=== PATIENT | male | born 1935 | race Caucasian/White ===

== ENCOUNTER → 2017-05-19 | Outpatient (CLI) | payer MEDICARE, BC ==
--- NOTE | 2017-05-19 17:47 | RADIOLOGY REPORT (SQ) ---
EXAM DESCRIPTION: SCAPULA BILATERAL COMPLETED DATE/TIME: 05/19/2017 5:34 pm REASON FOR STUDY: PAIN IN LEFT SHOULDER COMPARISON: None. NUMBER OF VIEWS: Two views, AP and lateral LIMITATIONS: None. FINDINGS: No acute fracture dislocation identified. There is significant degenerative changes noted in both shoulder joints, right greater than left. This all significant degenerative changes in both acromioclavicular joints. Visualized lung horne are clear. OTHER: No other significant finding. IMPRESSION: No acute fracture dislocation identified. Degenerative changes noted in both glenohumer al and acromioclavicular joints, right greater than left. TECHNICAL DOCUMENTATION: JOB ID: [id number]
== END ==
LOC: OD 17:06
PROVIDERS: ATTEND Internal Medicine
DX: M25.512 Pain in left shoulder (principal)

== ENCOUNTER → 2017-05-21 | Outpatient (CLI) | payer MEDICARE, BC ==
--- NOTE | 2017-05-21 14:39 | RADIOLOGY REPORT (SQ) ---
EXAM DESCRIPTION: MRI HEAD WITHOUT COMPLETED DATE/TIME: 05/21/2017 12:32 pm REASON FOR STUDY: DEMENTIA F02.80 DEMENTIA IN OTH DISEASES CLASSD ELSWHR W/O BEHAVRL DI COMPARISON: MRI brain dated 07/15/2010 TECHNIQUE: Multiplanar imaging includes non-contrasted T1, T2, FLAIR, and diffusion with ADC map seq uences. Images stored on PACS. LIMITATIONS: None. FINDINGS: ANATOMY: No anomalies. Normal vascular flow voids. Pituitary fossa normal. CSF SPACES: Atrophy induced prominence of ventricles and CSF spaces. This has increased since 2009. CEREBRUM: High signal intensity lesions scattered throughout the white matter on FLAIR imaging with d istribution suggesting micro-vascular ischemic changes. No evidence of hemorrhage, mass, or extraaxi al fluid collection. POSTERIOR FOSSA: No signal alteration. No hemorrhage. No edema, masses or mass effect. Internal quoc tory canals, cerebello-pontine angles, mastoids normal. DIFFUSION IMAGING: Negative for acute or sub-acute infarction. ORBITS: No masses. Globes normal. PARANASAL SINUSES: No fluid levels. Mucosa normal. OTHER: No other significant finding. IMPRESSION: ATROPHY AND CHRONIC MICRO-VASCULAR ISCHEMIC CHANGES. OTHERWISE NORMAL MRI OF THE BRAIN W ITHOUT INTRAVENOUS GADOLINIUM CONTRAST. TECHNICAL DOCUMENTATION: JOB ID: [id number] [employer]- All Rights Reserved
== END ==
LOC: RAD 11:03
PROVIDERS: ATTEND Internal Medicine
DX: F03.90 Unspecified dementia, unspecified severity, without behavioral disturbance, psychotic disturbance, mood disturbance, and anxiety (principal)
CPT/HCPCS: 70551

== ENCOUNTER 2018-06-12 19:59 | Emergency (ER) | payer MEDICARE, BC ==
[2018-06-12] MEDS ORDERED: NORMAL SALINE 1000 ML 1,000 ML IV ONE (20:34)
--- NOTE | 2018-06-12 20:34 | ER Document Report ---
ED General - General Stated Complaint: DEHYDRATION/WEAKNESS Time Seen by Provider: 06/12/18 20:22 Notes: Patient is an 83-year-old male comes emergency department for chief complaint of syncopal episode. He states he was working out in the yard cutting [employer] for about an hour when he started feeling lightheaded, his vision became blurry , and then he reportedly passed out. He was found diaphoretic. He states he hurts on the back of his head and in his neck, he comes by EMS, he refused c- collar. He denies chest pain or shortness of breath before or now. He has not vomited but he felt a little bit nauseated, EMS gave him Zofran. He does not take a blood thinner. Past medical history of hypertension, GERD, BPH, denies any cardiac history. TRAVEL OUTSIDE OF THE [place] IN LAST 30 DAYS: No - Related Data Allergies/Adverse Reactions: No Known Allergies Allergy (Verified 10/28/16 15:38) Past Medical History - General Information source: Patient - Social History Smoking Status: Never Smoker Frequency of alcohol use: None Drug Abuse: None Lives with: Family Family History: Reviewed & Not Pertinent - Past Medical History Cardiac Medical History: Reports: Hx Hypertension Musculoskeletal Medical History: Reports Hx Arthritis - gout Past Surgical History: Reports: Hx Orthopedic Surgery - L Hand L Knee - Immunizations Hx Diphtheria, Pertussis, Tetanus Vaccination: Yes Review of Systems - Review of Systems Constitutional: See HPI EENT: No symptoms reported Cardiovascular: No symptoms reported Respiratory: See HPI Gastrointestinal: No symptoms reported Genitourinary: No symptoms reported Male Genitourinary: No symptoms reported Musculoskeletal: No symptoms reported Skin: No symptoms reported Hematologic/Lymphatic: No symptoms reported Neurological/Psychological: See HPI Physical Exam - Vital signs Vitals: Temp Pulse Resp BP Pulse Ox 98.1 F 67 18 133/67 H 98 06/12/18 21:01 06/12/18 21:01 06/12/18 21:01 06/12/18 21:01 06/12/18 21:01 - Notes Notes: GENERAL: Alert, interacts well. No acute distress. HEAD: Normocephalic, atraumatic. EYES: Pupils equal, round, and reactive to light. Extraocular movements intact. ENT: Oral mucosa dry, tongue midline. NECK: Full range of motion. Supple. Trachea midline. LUNGS: Clear to auscultation bilaterally, no wheezes, rales, or rhonchi. No respiratory distress. HEART: Regular rate and rhythm. No murmur ABDOMEN: Soft, non-tender. Non-distended. Bowel sounds present in all 4 quadrants. EXTREMITIES: Moves all 4 extremities spontaneously. No edema, normal radial and dorsalis pedis pulses bilaterally. No cyanosis. BACK: no cervical, thoracic, lumbar midline tenderness. No saddle anesthesia, normal distal neurovascular exam. NEUROLOGICAL: Alert and oriented x3. Normal speech. [cranial nerves II through XII grossly intact]. PSYCH: Normal affect, normal mood. SKIN: Warm, dry, normal turgor. No rashes or lesions noted. Course - Re-evaluation Re-evalutation: Patient with dry mucous membranes but otherwise his physical examination is very unremarkable. came to bedside, states that she was there during the whole thing, he complained of being lightheaded, she eased him down to the sitting position and then he appeared to possibly pass out for a couple of seconds. No head injury or neck injury. After IV fluids patient's reported headache resolved. No evidence of trauma over the head. CT of the head and neck deferred. CBC, chemistry, troponins, EKG, chest x-ray with no acute abnormality other than mild hypokalemia. Repeat troponin unremarkable. After IV fluids patient is asymptomatic and asking to go home. Patient has been monitored in the emergency department 4 hours with no decompensation. He has a normal neurological exam, he is very well-appearing. Advised caution with exertion in the future, discussed close follow-up and return precautions, patient and family state understanding and agreement. - Vital Signs Vital signs: Temp Pulse Resp BP Pulse Ox 97.7 F 60 17 122/68 94 06/13/18 00:37 06/13/18 00:37 06/13/18 00:37 06/13/18 00:37 06/13/18 00:37 - Laboratory Result Diagrams: 06/12/18 20:43 06/12/18 20:43 Laboratory results interpreted by me: 06/12/18 06/12/18 06/12/18 20:43 20:43 23:54 Seg Neutrophils % 83.3 H Lymphocytes % 9.6 L Sodium 147.3 H Potassium 3.3 L Carbon Dioxide 31 H Est GFR (Non-Af Amer) 55 L Glucose 118 H Creatine Kinase 382 H Urine Ketones TRACE H Urine Ascorbic Acid 40 H Discharge - Discharge Clinical Impression: Dehydration Episode of syncope Qualifiers: Syncope type: unspecified Qualified Code(s): R55 - Syncope and collapse Condition: Stable Disposition: HOME, SELF-CARE Additional Instructions: Your evaluation and workup are most suggestive of your passing out episode being from dehydration and overheating. Your evaluation does not show any concerning abnormality, shows slightly low potassium which has been supplemented, this can be rechecked with primary care. Hydrate better, follow up closely. Return if you worsen including developing repeat passing out episode, chest pain , vomiting, fever, or any other concerning symptoms. Referrals: DIANA NERI MD [Primary Care Provider] - 06/15/18
[2018-06-12 20:59] LABS: ABSOLUTE BASOPHILS # (AUTO) 0.1 10^3/uL (0.0-0.2); ABSOLUTE LYMPHOCYTES (AUTO) 0.8 10^3/uL (0.5-4.7); ABSOLUTE MONOCYTES (AUTO) 0.5 10^3/uL (0.1-1.4); ABSOLUTE NEUT (AUTO) 6.5 10^3/uL (1.7-8.2); BASOPHILS % (AUTO) 1.1 % (0-2); EOSINOPHILS % (AUTO) 0.3 % (0-6); HEMATOCRIT 42.9 % (37.9-51.0); HEMOGLOBIN 14.7 g/dL (13.5-17.0); LYMPHOCYTES % (AUTO) 9.6 % (13-45); MEAN CORPUSCULAR HEMOGLOBIN 32.2 pg (27.0-33.4); MEAN CORPUSCULAR HGB CONC 34.3 g/dL (32.0-36.0); MEAN CORPUSCULAR VOLUME 94 fl (80-97); MONOCYTES % (AUTO) 5.7 % (3-13); PLATELET COUNT 165 10^3/uL (150-450); RED BLOOD COUNT 4.56 10^6/uL (4.35-5.55); RED CELL DISTRIBUTION WIDTH 13.7 % (11.5-14.0); SEGMENTED NEUTROPHILS % (AUTO) 83.3 % (42-78); TOTAL CELLS COUNTED % (AUTO) 100 %; WHITE BLOOD COUNT 7.9 10^3/uL (4.0-10.5)
[2018-06-12 21:06] LABS: ALANINE AMINOTRANSFERASE 33 U/L (21-72); ALBUMIN 4.1 g/dL (3.5-5.0); ALKALINE PHOSPHATASE 59 U/L (38-126); ANION GAP 14 (5-19); ASPARTATE AMINO TRANSFERASE 40 U/L (17-59); BILIRUBIN,DIRECT 0.2 mg/dL (0.0-0.4); BILIRUBIN,TOTAL 0.9 mg/dL (0.2-1.3); BLOOD UREA NITROGEN 17 mg/dL (7-20); CALCIUM 9.8 mg/dL (8.4-10.2); CARBON DIOXIDE 31 mmol/L (22-30); CHLORIDE 102 mmol/L (98-107); CREATINE KINASE 382 U/L (55-170); GLUCOSE 118 mg/dL (75-110); POTASSIUM 3.3 mmol/L (3.6-5.0); SODIUM 147.3 mmol/L (137-145); TOTAL PROTEIN 7.3 g/dL (6.3-8.2)
[2018-06-12] MEDS ORDERED: POTASSIUM CHLORIDE 10 MEQ CAPSULE.ER PO ONE (21:42)
--- NOTE | 2018-06-12 21:44 | RADIOLOGY REPORT (SQ) ---
EXAM DESCRIPTION: CHEST SINGLE VIEW COMPLETED DATE/TIME: 06/12/2018 8:58 pm REASON FOR STUDY: syncopal episode COMPARISON: Chest x-ray 04/26/2010. EXAM PARAMETERS: NUMBER OF VIEWS: One view. TECHNIQUE: Single frontal radiographic view of the chest acquired. RADIATION DOSE: NA LIMITATIONS: None. FINDINGS: LUNGS AND PLEURA: No consolidation, pneumothorax or pleural effusion. MEDIASTINUM AND HILAR STRUCTURES: No masses. Contour normal. HEART AND VASCULAR STRUCTURES: Heart normal in size. Normal vasculature. BONES: No acute findings. HARDWARE: None in the chest. IMPRESSION: No acute radiographic finding in the chest. TECHNICAL DOCUMENTATION: JOB ID: [id number] 2010 [employer]- All Rights Reserved Reading location - IP/workstation name: [email or web address]
--- NOTE | 2018-06-12 21:59 | EKG REPORT ---
SEVERITY:- ABNORMAL ECG - SINUS RHYTHM FIRST DEGREE AV BLOCK : Confirmed by: Hermelinda Uriarte 12-Jun-2018 21:59:02
[2018-06-13 00:22] LABS: APPEARANCE,URINE CLEAR; BILIRUBIN,URINE NEGATIVE (NEGATIVE); COLOR,URINE YELLOW; GLUCOSE, URINE NEGATIVE (NEGATIVE); KETONES,URINE TRACE mg/dL (NEGATIVE); LEUKOCYTE ESTERASE,URINE NEGATIVE (NEGATIVE); NITRITE,URINE NEGATIVE (NEGATIVE); PROTEIN,URINE NEGATIVE (NEGATIVE); URINE SPECIFIC GRAVITY 1.016; UROBILINOGEN,URINE NEGATIVE mg/dL (<2.0)
[2018-06-13 00:56] VITALS: BP 122/68
== END 2018-06-13 00:50 | disposition home or self-care (01) ==
LOC: ER 19:59
DX: E86.0 Dehydration (principal); R55 Syncope and collapse; R53.1 Weakness; I10 Essential (primary) hypertension
CPT/HCPCS: 93005; 99284; 96360; 36415; 82550; 85025; 80053; 81001; 84484; 71045; 93010; J7030; A9270

== ENCOUNTER 2018-10-19 09:48 | Observation (INO) | payer MEDICARE, BC ==
[2018-10-19 11:29] LABS: ABSOLUTE BASOPHILS # (AUTO) 0.1 10^3/uL (0.0-0.2); ABSOLUTE EOSINOPHILS # (AUTO) 0.3 10^3/uL (0.0-0.6); ABSOLUTE LYMPHOCYTES (AUTO) 1.6 10^3/uL (0.5-4.7); ABSOLUTE MONOCYTES (AUTO) 0.5 10^3/uL (0.1-1.4); ABSOLUTE NEUT (AUTO) 4.1 10^3/uL (1.7-8.2); BASOPHILS % (AUTO) 0.8 % (0-2); HEMATOCRIT 42.9 % (37.9-51.0); HEMOGLOBIN 14.8 g/dL (13.5-17.0); LYMPHOCYTES % (AUTO) 25.1 % (13-45); MEAN CORPUSCULAR HEMOGLOBIN 32.5 pg (27.0-33.4); MEAN CORPUSCULAR HGB CONC 34.4 g/dL (32.0-36.0); MEAN CORPUSCULAR VOLUME 94 fl (80-97); MONOCYTES % (AUTO) 8.3 % (3-13); PLATELET COUNT 178 10^3/uL (150-450); RED BLOOD COUNT 4.54 10^6/uL (4.35-5.55); RED CELL DISTRIBUTION WIDTH 13.7 % (11.5-14.0); SEGMENTED NEUTROPHILS % (AUTO) 61.8 % (42-78); TOTAL CELLS COUNTED % (AUTO) 100 %; WHITE BLOOD COUNT 6.6 10^3/uL (4.0-10.5)
--- NOTE | 2018-10-19 12:33 | RADIOLOGY REPORT (SQ) ---
EXAM DESCRIPTION: CHEST SINGLE VIEW COMPLETED DATE/TIME: 10/19/2018 12:23 pm REASON FOR STUDY: chest pain COMPARISON: 04/26/2010 EXAM PARAMETERS: NUMBER OF VIEWS: One view. TECHNIQUE: Single frontal radiographic view of the chest acquired. RADIATION DOSE: NA LIMITATIONS: None. FINDINGS: LUNGS AND PLEURA: No opacities, masses or pneumothorax. No pleural effusion. MEDIASTINUM AND HILAR STRUCTURES: Fullness along the right mediastinal border is most consistent with ectatic aorta. HEART AND VASCULAR STRUCTURES: Heart normal in size. Normal vasculature. BONES: No acute findings. HARDWARE: None in the chest. OTHER: No other significant finding. IMPRESSION: NO ACUTE RADIOGRAPHIC FINDING IN THE CHEST. TECHNICAL DOCUMENTATION: JOB ID: [id number] [employer]- All Rights Reserved Reading location - IP/workstation name: [email or web address]
[2018-10-19] MEDS: ASPIRIN 81 MG TABLET, CHEWABLE PO SCH (12:47)
[2018-10-19 13:30] LABS: ALBUMIN 3.7 g/dL (3.5-5.0); ANION GAP 9 (5-19); BLOOD UREA NITROGEN 11 mg/dL (7-20); CARBON DIOXIDE 35 mmol/L (22-30); CHLORIDE 101 mmol/L (98-107); GLUCOSE 86 mg/dL (75-110); POTASSIUM 3.5 mmol/L (3.6-5.0); SODIUM 145.2 mmol/L (137-145); TOTAL PROTEIN 6.6 g/dL (6.3-8.2)
--- NOTE | 2018-10-19 13:35 | EKG REPORT ---
SEVERITY:- ABNORMAL ECG - SINUS BRADYCARDIA FIRST DEGREE AV BLOCK : Confirmed by: Kvng Schafer MD 19-Oct-2018 13:34:37
[2018-10-19 13:39] LABS: ALANINE AMINOTRANSFERASE 17 U/L (21-72); ALKALINE PHOSPHATASE 60 U/L (38-126); ASPARTATE AMINO TRANSFERASE 30 U/L (17-59); BILIRUBIN,DIRECT 0.1 mg/dL (0.0-0.4); BILIRUBIN,TOTAL 0.6 mg/dL (0.2-1.3); CALCIUM 9.7 mg/dL (8.4-10.2); CREATINE KINASE 287 U/L (55-170)
[2018-10-19 13:44] LABS: CREATINE KINASE MB 4.61 ng/mL (<4.55); TROPONIN I < 0.012 ng/mL
[2018-10-19] MEDS ORDERED: POTASSI CL 20 MEQ/D5-1/2NS 1L 1,000 ML IV PRN (17:44)
[2018-10-19 20:14] LABS: TROPONIN I < 0.012 ng/mL
--- NOTE | 2018-10-19 20:38 | PDOC H&P ---
History of Present Illness Admission Date/PCP: 10/19/18 09:48 DIANA NERI MD History of Present Illness: HERNANDEZ MEYER is a 83 year old male,Patient was admitted for evaluation of chest pain, He has underlining dementia is a poor historian, he does not know the blood conditions improve of the chest pain. 12-lead EKG was done in the office, it was sinus rhythm, Q waves in inferior leads Past Medical History Cardiac Medical History: Reports: Hypertension Musculoskeltal Medical History: Reports: Arthritis - gout Psychiatric Medical History: Reports: Dementia Past Surgical History Past Surgical History: Reports: Orthopedic Surgery - L Hand L Knee Social History Smoking Status: Never Smoker Frequency of Alcohol Use: None Hx Recreational Drug Use: No Hx Prescription Drug Abuse: No Family History Family History: Reviewed & Not Pertinent Parental Family History Reviewed: Yes Children Family History Reviewed: Yes Sibling(s) Family History Reviewed.: Yes Medication/Allergy Home Medications: Donepezil HCl [Aricept] 10 mg PO QHS 10/19/18 Hydrochlorothiazide [Hydrodiuril 25 mg Tablet] 25 mg PO QAM 10/19/18 Metoprolol Tartrate [Lopressor 50 mg Tablet] 50 mg PO DAILY 10/19/18 Omeprazole 40 mg PO DAILY 10/19/18 Tamsulosin HCl [Flomax 0.4 mg Cap.sr] 0.4 mg PO DAILY 10/19/18 Allergies/Adverse Reactions: No Known Allergies Allergy (Verified 10/28/16 15:38) Review of Systems Constitutional: ABSENT: chills, fever(s), headache(s), weight gain, weight loss Eyes: ABSENT: visual disturbances Ears: ABSENT: hearing changes Cardiovascular: ABSENT: chest pain, dyspnea on exertion, edema, orthropnea, palpitations Respiratory: ABSENT: cough, hemoptysis Gastrointestinal: ABSENT: abdominal pain, constipation, diarrhea, hematemesis, hematochezia, nausea, vomiting Genitourinary: ABSENT: dysuria, hematuria Musculoskeletal: ABSENT: joint swelling Integumentary: ABSENT: rash, wounds Neurological: PRESENT: memory loss. ABSENT: abnormal gait, abnormal speech, confusion, dizziness, focal weakness, syncope Endocrine: ABSENT: cold intolerance, heat intolerance, menstrual abnormalities, polydipsia, polyuria Hematologic/Lymphatic: ABSENT: easy bleeding, easy bruising, lymphadenopathy Physical Exam Vital Signs: Temp Pulse Resp BP Pulse Ox 98.5 F 62 16 118/68 96 10/19/18 19:23 10/19/18 19:23 10/19/18 19:23 10/19/18 19:23 10/19/18 19:23 Intake & Output 10/18/18 10/19/18 10/20/18 06:59 06:59 06:59 Intake Total 237 Balance 237 Weight 69.2 kg General appearance: PRESENT: no acute distress, well-developed, well-nourished Head exam: PRESENT: atraumatic, normocephalic Eye exam: PRESENT: conjunctiva pink, EOMI, PERRLA Ear exam: PRESENT: normal external ear exam Mouth exam: PRESENT: moist, tongue midline Neck exam: PRESENT: full ROM Respiratory exam: PRESENT: clear to auscultation car Cardiovascular exam: PRESENT: +S1, +S2 Vascular exam: PRESENT: normal capillary refill GI/Abdominal exam: PRESENT: normal bowel sounds, soft Rectal exam: PRESENT: deferred Neurological exam: PRESENT: alert, CN II-XII grossly intact Psychiatric exam: PRESENT: appropriate affect, normal mood Skin exam: PRESENT: dry, intact, warm Results Laboratory Results: 10/19/18 10:30 10/19/18 12:42 10/19/18 10/19/18 10/19/18 10:30 10:30 12:42 WBC 6.6 RBC 4.54 Hgb 14.8 Hct 42.9 MCV 94 MCH 32.5 MCHC 34.4 RDW 13.7 Plt Count 178 Seg Neutrophils % 61.8 Lymphocytes % 25.1 Monocytes % 8.3 Eosinophils % 4.0 Basophils % 0.8 Absolute Neutrophils 4.1 Absolute Lymphocytes 1.6 Absolute Monocytes 0.5 Absolute Eosinophils 0.3 Absolute Basophils 0.1 Sodium Cancelled 145.2 H Potassium Cancelled 3.5 L Chloride Cancelled 101 Carbon Dioxide Cancelled 35 H Anion Gap Cancelled 9 BUN Cancelled 11 Creatinine Cancelled 1.15 Est GFR ( Amer) Cancelled > 60 Est GFR (Non-Af Amer) Cancelled > 60 Glucose Cancelled 86 Calcium Cancelled 9.7 Total Bilirubin Cancelled 0.6 AST Cancelled 30 ALT Cancelled 17 L Alkaline Phosphatase Cancelled 60 Total Protein Cancelled 6.6 Albumin Cancelled 3.7 10/19/18 10/19/18 10/19/18 10:30 10:30 12:42 Creatine Kinase Cancelled 287 H CK-MB (CK-2) Cancelled Troponin I Cancelled 10/19/18 10/19/18 10/19/18 12:42 19:30 19:30 Creatine Kinase 220 H CK-MB (CK-2) 4.61 H 3.60 Troponin I < 0.012 < 0.012 Impressions: Chest X-Ray 10/19/18 00:00 IMPRESSION: NO ACUTE RADIOGRAPHIC FINDING IN THE CHEST. Assessment & Plan - Diagnosis (1) Chest pain Qualifiers: Chest pain type: unspecified Qualified Code(s): R07.9 - Chest pain, unspecified Is this a current diagnosis for this admission?: Yes Plan: Patient was admitted for evaluation of chest pain
[2018-10-19] MEDS ORDERED: DONEPEZIL HCL 5 MG TABLET PO SCH (22:00)
[2018-10-20 04:45] LABS: TROPONIN I < 0.012 ng/mL
[2018-10-20] MEDS ORDERED: LANSOPRAZOLE 30 MG TAB.RAP.DR PO SCH (06:00)
[2018-10-20] MEDS ORDERED: HYDROCHLOROTHIAZIDE 25 MG TABLET PO SCH (08:00)
[2018-10-20] MEDS ORDERED: TAMSULOSIN HCL 0.4 MG CAP.SR.24H PO SCH (10:00)
[2018-10-20] MEDS: ASPIRIN 81 MG TABLET, CHEWABLE PO SCH (12:00)
[2018-10-20] MEDS ORDERED: REGADENOSON INJ 0.4 MG/5 ML DISP.SYRIN IV ONE (12:00)
[2018-10-20] MEDS ORDERED: ACETAMINOPHEN 325 MG TABLET PO PRN (12:13)
[2018-10-20 15:42] VITALS: BP 115/82
--- NOTE | 2018-10-20 17:28 | PDOC DISCHARGE SUMMARY ---
General - Admit/Disc Date/PCP Admission Date/Primary Care Provider: 10/19/18 09:48 DIANA NERI MD Discharge Date: 10/20/18 - Discharge Diagnosis (1) Chest pain Is this a current diagnosis for this admission?: Yes - Additional Information Home Medications: Donepezil HCl [Aricept] 10 mg PO QHS 10/19/18 Hydrochlorothiazide [Hydrodiuril 25 mg Tablet] 25 mg PO QAM 10/19/18 Metoprolol Tartrate [Lopressor 50 mg Tablet] 50 mg PO DAILY 10/19/18 Omeprazole 40 mg PO DAILY 10/19/18 Tamsulosin HCl [Flomax 0.4 mg Cap.sr] 0.4 mg PO DAILY 10/19/18 History of Present Illness History of Present Illness: HERNANDEZ MEYER is a 83 year old male,Patient was admitted for evaluation of chest pain, He has underlining dementia is a poor historian, he does not know the blood conditions improve of the chest pain. 12-lead EKG was done in the office, it was sinus rhythm, Q waves in inferior leads Hospital Course Hospital Course: Patient was admitted for evaluation and management of chest pain, 3 sets of cardiac enzymes were negative for acute IL. The Cardiolite Lexiscan stress test was negative for reversible ischemia the chest pain is atypical in character Physical Exam Vital Signs: Temp Pulse Resp BP Pulse Ox 99.0 F 95 20 115/82 97 10/20/18 15:40 10/20/18 15:40 10/20/18 15:40 10/20/18 15:40 10/20/18 15:40 Intake & Output 10/19/18 10/20/18 10/21/18 06:59 06:59 06:59 Intake Total 237 237 Balance 237 237 Weight 72.1 kg General appearance: PRESENT: no acute distress, well-developed, well-nourished Head exam: PRESENT: atraumatic, normocephalic Eye exam: PRESENT: conjunctiva pink, EOMI, PERRLA Ear exam: PRESENT: normal external ear exam Mouth exam: PRESENT: moist, tongue midline Respiratory exam: PRESENT: clear to auscultation car Cardiovascular exam: PRESENT: RRR, +S1, +S2 Vascular exam: PRESENT: normal capillary refill GI/Abdominal exam: PRESENT: normal bowel sounds, soft Rectal exam: PRESENT: deferred Neurological exam: PRESENT: alert, CN II-XII grossly intact Skin exam: PRESENT: dry, intact, warm Results Laboratory Results: 10/19/18 10:30 10/19/18 12:42 10/19/18 10/19/18 10/19/18 10:30 10:30 12:42 Creatine Kinase Cancelled 287 H CK-MB (CK-2) Cancelled Troponin I Cancelled 10/19/18 10/19/18 10/19/18 12:42 19:30 19:30 Creatine Kinase 220 H CK-MB (CK-2) 4.61 H 3.60 Troponin I < 0.012 < 0.012 10/20/18 10/20/18 03:36 03:36 Creatine Kinase 198 H CK-MB (CK-2) 2.80 Troponin I < 0.012 Impressions: Chest X-Ray 10/19/18 00:00 IMPRESSION: NO ACUTE RADIOGRAPHIC FINDING IN THE CHEST. Qualifiers - * PATIENT BEING DISCHARGED WITH ANY OF THE FOLLOWING DIAGNOSIS: No
--- NOTE | 2018-10-22 12:04 | XCELERA REPORT ---
[address] [address] Transthoracic Echocardiogram Report Name: HERNANDEZ MEYER Age: 83 yrs Gender: Male : 1935 Patient Status: Inpatient Patient Location: [address] [place], [place] [id number] Study Date: 10/19/2018 05:37 PM Height: 68 in Weight: 152 lb BSA: 1.8 m2 Procedure: A two-dimensional transthoracic echocardiogram with color flow and Doppler was performed. Study Quality: Poor. Reason For Study: chest pain/ abnormal Ekg History: chest pain/ abnormal Ekg. Ordering Physician: DIANA NERI Performed By: Carmela Pantoja Interpretation Summary The left ventricle is normal in size. There is normal left ventricular wall thickness. LV EF is > than 60% Left ventricular systolic function is normal. Doppler measurements suggest impaired left ventricular relaxation, which is associated with grade I/IV or mild diastolic dysfunction The left ventricular wall motion is normal. The right ventricle is normal in size and function. The right atrium is normal. The left atrial size is normal. There is no evidence of mitral valve prolapse. There is no vegetation seen on the mitral valve. There is no mitral valve stenosis. There is a trace amount of mitral regurgitation There is no aortic valvular vegetation. There is no aortic valve stenosis There is no LVOT obstruction. No aortic regurgitation is present. There is no tricuspid stenosis. There is a trace amount of tricuspid regurgitation Unable to calculate RVSP due lack of TR jet. The pulmonic valve is not well visualized. There is no pericardial effusion. MMode/2D Measurements & Calculations RVDd: 2.1 cm LVIDd: 4.2 cm FS: 34.0 % Ao root diam: 3.2 cm IVSd: 1.1 cm LVIDs: 2.8 cm EDV(Teich): 78.0 ml Ao root area: 7.9 cm2 LVPWd: 0.94 cm ESV(Teich): 28.6 ml LA dimension: 3.3 cm EF(Teich): 63.4 % Doppler Measurements & Calculations MV E max jazmyne: MV P1/2t max jazmyne: Ao V2 max: LV V1 max P.2 cm/sec 79.9 cm/sec 115.1 cm/sec 2.3 mmHg MV A max jazmyne: MV P1/2t: 75.1 msec Ao max PG: LV V1 max: 84.4 cm/sec MVA(P1/2t): 2.9 cm2 5.3 mmHg 76.0 cm/sec MV E/A: 0.73 MV dec slope: 311.8 cm/sec2 MV dec time: 0.25 sec TV V2 max: PA V2 max: TR max jazmyne: MV P1/2t-pr_phl: 89.5 cm/sec 82.5 cm/sec 166.1 cm/sec 75.1 msec TV max PG: PA max P.7 mmHg TR max P.2 mmHg 11.0 mmHg Left Ventricle The left ventricle is normal in size. There is normal left ventricular wall thickness. LV EF is > than 60%. Left ventricular systolic function is normal. Doppler measurements suggest impaired left ventricular relaxation, which is associated with grade I/IV or mild diastolic dysfunction. The left ventricular wall motion is normal. There is no thrombus. Right Ventricle The right ventricle is normal in size and function. Atria The right atrium is normal. The left atrial size is normal. Mitral Valve There is no evidence of mitral valve prolapse. There is no vegetation seen on the mitral valve. There is no mitral valve stenosis. There is a trace amount of mitral regurgitation. Aortic Valve There is no aortic valvular vegetation. There is no aortic valve stenosis. There is no LVOT obstruction. No aortic regurgitation is present. Tricuspid Valve There is no tricuspid stenosis. There is a trace amount of tricuspid regurgitation. Unable to calculate RVSP due lack of TR jet. Pulmonic Valve The pulmonic valve is not well visualized. Great Vessels The aortic root is not well visualized but is probably normal size. Effusions There is no pericardial effusion. : DIANA NERI > Itzel Rodriguez
--- NOTE | 2018-10-22 16:44 | DRAGON STRESS TEST REPORT ---
Intravenous Lexiscan Cardiolite stress test using single photon emmision computerized tomography. Date of procedure: 10/20/2018. Ordering Provider: Dr. Pierre. Patient's status: Inpatient. Indication: Chest pain. Coronary risk factors: Age, and hypertension. Resting EKG: Sinus Rhythm. Poor R wave progression leads V1 to V6. Stress EKG: No changes of ischemia. Reason for termination: Protocol. The patient had no chest pain or discomfort, and there were no arrhythmias seen. Conclusions: Normal EKG and hemodynamic response to IV Lexiscan. Nuclear data: At rest the patient was given 10.84 millicuries of technetium 99m sestamibi injected intravenously. As per protocol rest non gated SPECT images were obtained. Subsequently the patient was given intravenous Lexiscan at a dose of 0.4 mg in 5 mL intravenously, followed by flush with normal saline. Subsequently the stress dose of 30.6 millicuries of technetium 99m sestamibi was injected intravenously. As per protocol stress gated images were obtained. Nuclear interpretation: Review of images showed that there is liver and bowel contamination artifact of the inferior wall. Also there was soft tissue attenuation artifact involving a small area of the left ventricular apex which is more prominent in the rest images compared to the stress images. The rest of the segments of the myocardium had normal perfusion at rest, and normal perfusion post stress with IV Lexiscan. All segments of the myocardium had normal motion, contraction, and thickening by gated study. T. I D. ratio was normal at 1.05 . Computer read rest, and stress left ventricular ejection fraction were 57%, and 48%, respectively. Visually both the stress and rest ejection fractions were normal, and greater than 55%. Conclusion: 1. There is no scintigraphic evidence of Lexiscan induced myocardial ischemia. 2. There is no scintigraphic evidence of myocardial infarction/scar. Recommendations: Aggressive risk factor modification, and treating the underlying co- morbidities. MTDD
== END 2018-10-20 17:48 | disposition home or self-care (01) ==
LOC: 3N 09:48
PROVIDERS: ADMIT Internal Medicine; ATTEND Internal Medicine
DX: R07.89 Other chest pain (principal); F03.90 Unspecified dementia, unspecified severity, without behavioral disturbance, psychotic disturbance, mood disturbance, and anxiety; I10 Essential (primary) hypertension; R94.31 Abnormal electrocardiogram [ECG] [EKG]; Z79.899 Other long term (current) drug therapy
CPT/HCPCS: 36415 ×2; 82553 ×2; 82550 ×2; 85025; 80076; 80048; 84484 ×2; 93306; 93017; 71045; 78452; 93005; 93010; A9500; J2785; A9270 ×4; J3480; Q9969; G0378; G0379

== ENCOUNTER 2018-10-27 19:25 | Emergency (ER) | payer OTHER, MEDICARE, BC ==
[2018-10-27] MEDS ORDERED: ACETAMINOPHEN 325 MG TABLET PO ONE (21:02)
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
[2018-10-27 23:18] LABS: ABSOLUTE EOSINOPHILS # (AUTO) 0.3 10^3/uL (0.0-0.6); ABSOLUTE LYMPHOCYTES (AUTO) 1.3 10^3/uL (0.5-4.7); ABSOLUTE MONOCYTES (AUTO) 0.6 10^3/uL (0.1-1.4); ABSOLUTE NEUT (AUTO) 4.9 10^3/uL (1.7-8.2); BASOPHILS % (AUTO) 0.4 % (0-2); EOSINOPHILS % (AUTO) 4.4 % (0-6); HEMATOCRIT 40.8 % (37.9-51.0); LYMPHOCYTES % (AUTO) 18.6 % (13-45); MEAN CORPUSCULAR HEMOGLOBIN 32.4 pg (27.0-33.4); MEAN CORPUSCULAR HGB CONC 34.4 g/dL (32.0-36.0); MEAN CORPUSCULAR VOLUME 94 fl (80-97); PLATELET COUNT 197 10^3/uL (150-450); RED BLOOD COUNT 4.33 10^6/uL (4.35-5.55); RED CELL DISTRIBUTION WIDTH 13.5 % (11.5-14.0); SEGMENTED NEUTROPHILS % (AUTO) 68.6 % (42-78); TOTAL CELLS COUNTED % (AUTO) 100 %; WHITE BLOOD COUNT 7.2 10^3/uL (4.0-10.5)
[2018-10-27 23:25] LABS: ALANINE AMINOTRANSFERASE 24 U/L (21-72); ALBUMIN 3.7 g/dL (3.5-5.0); ALKALINE PHOSPHATASE 58 U/L (38-126); ANION GAP 11 (5-19); ASPARTATE AMINO TRANSFERASE 32 U/L (17-59); BILIRUBIN,DIRECT 0.2 mg/dL (0.0-0.4); BILIRUBIN,TOTAL 0.4 mg/dL (0.2-1.3); BLOOD UREA NITROGEN 13 mg/dL (7-20); CALCIUM 9.2 mg/dL (8.4-10.2); CARBON DIOXIDE 34 mmol/L (22-30); CHLORIDE 99 mmol/L (98-107); GLUCOSE 119 mg/dL (75-110); POTASSIUM 3.9 mmol/L (3.6-5.0); SODIUM 143.5 mmol/L (137-145); TOTAL PROTEIN 6.8 g/dL (6.3-8.2)
[2018-10-28 00:54] VITALS: BP 113/66
--- NOTE | 2018-10-28 09:31 | EKG REPORT ---
SEVERITY:- ABNORMAL ECG - SINUS RHYTHM FIRST DEGREE AV BLOCK : Confirmed by: Hermelinda Uriarte 28-Oct-2018 09:31:06
== END 2018-10-28 00:10 | disposition home or self-care (01) ==
LOC: ER 19:25
DX: R51 Headache (principal); M54.2 Cervicalgia; R07.9 Chest pain, unspecified; V49.50XA Passenger injured in collision with unspecified motor vehicles in traffic accident, initial encounter; I10 Essential (primary) hypertension; I44.0 Atrioventricular block, first degree
CPT/HCPCS: 36415; 70450; 71250; 72125; 80053; 84484; 85025; 93005; 93010; 99285

== ENCOUNTER 2019-12-22 13:17 | Emergency (ER) | payer MEDICARE, BC ==
[2019-12-22 13:35] VITALS: BP 133/72
--- NOTE | 2019-12-22 14:21 | ER Document Report ---
ED Medical Screen (RME) - General Chief Complaint: Low Back Pain Stated Complaint: LOW BACK PAIN Time Seen by Provider: 12/22/19 14:05 Primary Care Provider: DIANA NERI MD [Primary Care Provider] - Follow up as needed Mode of Arrival: Ambulatory Information source: Patient Notes: 84-year-old male presented to ED for to have his heart checked out. He states he was sent by Dr. Neri. He is alert oriented respirations regular nonlabored. He states he is not sure why he was sent over. He states Dr. Neri called him from home told him to come to the emergency room. TRAVEL OUTSIDE OF THE [place] IN LAST 30 DAYS: No - Related Data Allergies/Adverse Reactions: No Known Allergies Allergy (Verified 10/27/18 19:26) Past Medical History - Past Medical History Cardiac Medical History: Reports: Hx Hypertension Renal/ Medical History: Denies: Hx Peritoneal Dialysis Musculoskeltal Medical History: Reports Hx Arthritis - gout Psychiatric Medical History: Reports: Hx Dementia Past Surgical History: Reports: Hx Orthopedic Surgery - L Hand L Knee - Immunizations Hx Diphtheria, Pertussis, Tetanus Vaccination: Yes Physical Exam - Vital signs Vitals: Temp Pulse Resp BP Pulse Ox 98.4 F 58 L 16 133/72 H 96 12/22/19 13:33 12/22/19 13:33 12/22/19 13:33 12/22/19 13:33 12/22/19 13:33 Course - Vital Signs Vital signs: Temp Pulse Resp BP Pulse Ox 98.4 F 58 L 16 133/72 H 96 12/22/19 13:33 12/22/19 13:33 12/22/19 13:33 12/22/19 13:33 12/22/19 13:33 Doctor's Discharge - Discharge Referrals: DIANA NERI MD [Primary Care Provider] - Follow up as needed
== END 2019-12-22 14:10 | disposition other institution (70) ==
LOC: ER 13:17
DX: Z53.21 Procedure and treatment not carried out due to patient leaving prior to being seen by health care provider (principal)

== ENCOUNTER → 2019-12-22 | Outpatient (CLI) | payer MEDICARE, BC ==
--- NOTE | 2019-12-22 16:11 | RADIOLOGY REPORT (SQ) ---
EXAM DESCRIPTION: U/S RETROPERITON (RENAL/AORTA) COMPLETED DATE/TIME: 12/22/2019 3:41 pm REASON FOR STUDY: R94.4 ABNORMAL RESULTS OF KIDNEY FUNCTION STUDIES R94.4 ABNORMAL RESULTS OF KIDNE Y FUNCTION STUDIES COMPARISON: None. TECHNIQUE: Dynamic and static grayscale images acquired of the kidneys and bladder and recorded on P ACS. Additional selected color Doppler and spectral images recorded. LIMITATIONS: None. FINDINGS: RIGHT KIDNEY: Normal size, 9 cm. Normal echogenicity. No solid or suspicious masses. 4.5 cm lower pole cyst. No hydronephrosis. No calcifications. LEFT KIDNEY: Normal size, 9.1 cm. Normal echogenicity. No solid or suspicious masses. 5.5 cm upper pole cyst. No hydronephrosis. No calcifications. BLADDER: Incompletely filled but otherwise unremarkable. OTHER FINDINGS: No other significant finding. IMPRESSION: NORMAL RENAL AND BLADDER ULTRASOUND. TECHNICAL DOCUMENTATION: JOB ID: [id number] [employer]- All Rights Reserved Reading location - IP/workstation name: [email or web address]
== END ==
LOC: RAD 14:51
PROVIDERS: ATTEND Internal Medicine
DX: R94.4 Abnormal results of kidney function studies (principal)
CPT/HCPCS: 76770

== ENCOUNTER 2020-06-18 10:17 | Emergency (ER) | payer MEDICARE, BC ==
[2020-06-18 10:37] LABS: HEMATOCRIT 41.3 % (37.9-51.0); HEMOGLOBIN 14.1 g/dL (13.5-17.0); MEAN CORPUSCULAR HEMOGLOBIN 32.7 pg (27.0-33.4); MEAN CORPUSCULAR HGB CONC 34.1 g/dL (32.0-36.0); MEAN CORPUSCULAR VOLUME 96 fl (80-97); PLATELET COUNT 153 10^3/uL (150-450); RED BLOOD COUNT 4.31 10^6/uL (4.35-5.55); RED CELL DISTRIBUTION WIDTH 13.4 % (11.5-14.0); WHITE BLOOD COUNT 8.1 10^3/uL (4.0-10.5)
--- NOTE | 2020-06-18 10:47 | ER Document Report ---
ED General - General Stated Complaint: HEART RATE ISSUES Time Seen by Provider: 06/18/20 10:20 Primary Care Provider: DIANA NERI MD [Primary Care Provider] - Follow up as needed Mode of Arrival: Medic Information source: Patient, Emergency Med Personnel TRAVEL OUTSIDE OF THE [place] IN LAST 30 DAYS: No - HPI Notes: Patient presents by ambulance for weakness. Ambulance personnel state that they were called out to the house for weakness. They state when they found the patient he had a very low pulse approximately 32-35 and was drowsy. They state they then began to externally paced the patient. They used 30 mA and a rate of 70. They state they had good capture. They said they used 2.5 mg of Versed for sedation. At this time patient does complain of some leg pain. It is mainly his left leg. He states this is been going on "for some time". Patient is somewhat of a poor historian secondary to dementia. His pain appears to get wor se if he moves the leg and better if he does not. Patient has no known radiation of this pain. Patient is unable to describe the characteristics of the pain. He denies any abdominal pain. He denies chest pain at this time even with the pacing. He denies any shortness of breath. He states "I feel better". - Related Data Allergies/Adverse Reactions: No Known Allergies Allergy (Verified 10/27/18 19:26) Past Medical History - General Information source: Patient, Emergency Med Personnel - Social History Smoking Status: Former Smoker Frequency of alcohol use: None Drug Abuse: None Family History: Reviewed & Not Pertinent - Past Medical History Cardiac Medical History: Reports: Hx Hypertension Renal/ Medical History: Denies: Hx Peritoneal Dialysis Musculoskeletal Medical History: Reports Hx Arthritis - gout Psychiatric Medical History: Reports: Hx Dementia Past Surgical History: Reports: Hx Orthopedic Surgery - L Hand L Knee - Immunizations Hx Diphtheria, Pertussis, Tetanus Vaccination: Yes Review of Systems - Review of Systems Constitutional: denies: Chills, Fever Cardiovascular: denies: Chest pain, Palpitations Respiratory: denies: Cough, Short of breath -: Yes All other systems reviewed and negative Physical Exam - Vital signs Vitals: Temp 97.9 F 06/18/20 10:17 Interpretation: Hypotensive, Bradycardic - General General appearance: Lethargic In distress: None - HEENT Head: Normocephalic, Atraumatic Eyes: Normal Pupils: PERRL - Respiratory Respiratory status: No respiratory distress Chest status: Nontender Breath sounds: Decreased air movement Chest palpation: Normal - Cardiovascular Rhythm: Bradycardia Heart sounds: Normal auscultation Murmur: No - Abdominal Inspection: Normal Distension: No distension Bowel sounds: Normal Tenderness: Nontender Organomegaly: No organomegaly - Back Back: Normal, Nontender - Extremities General upper extremity: Normal inspection, Nontender, Normal color, Normal ROM, Normal temperature General lower extremity: Normal inspection, Nontender, Normal color, Normal ROM, Normal temperature, Normal weight bearing. No: Romel's sign - Neurological Cognition: Confused Orientation: Disoriented to place, Disoriented to time [place]yl[place] Coma Scale Eye Opening: Spontaneous [place] Coma Scale Verbal: Confused [place] Coma Scale Motor: Obeys Commands [place] Coma Scale Total: 14 Speech: Normal Notes: sleepy but easily arousable to voice - Psychological Associated symptoms: Normal affect, Normal mood - Skin Skin Temperature: Warm Skin Moisture: Dry Skin Color: Normal Course - Re-evaluation Re-evalutation: 06/18/20 11:16 Patient arrives with external pacing in place. He has no significant planes other than leg pain. He denies shortness of breath or chest pain. Patient does have dementia. Patient was immediately transferred to our external pacing and had good capture at 40 mA with a rate of 70. He has had a stable blood pressure throughout. His blood pressure is 142/84 at this time. O2 saturation is 1 high percent on 2 L. Heart rate is 70. Patient is conversant although somewhat somnolent. He has been stable throughout his stay here. Potassium did come back slightly low and a K rider has been started. I have contacted the tertiary facility which has sent a helicopter for the patient. Cardiology also saw the patient in the emergency department and recommended transfer. No other significant interventions have had to be started at this time. No medications have been given. We did make a dopamine infusion but never had to start this as he is had good capture and has tolerated the pacing well. - Vital Signs Vital signs: Temp Pulse Resp BP Pulse Ox 97.9 F 06/18/20 10:17 - Laboratory Result Diagrams: 06/18/20 10:27 06/18/20 10:27 Laboratory results interpreted by me: 06/18/20 06/18/20 10:27 10:27 RBC 4.31 L Potassium 3.0 L* Carbon Dioxide 34 H Creatinine 1.43 H Est GFR ( Amer) 57 L Est GFR (MDRD) Non-Af 47 L Glucose 113 H - Diagnostic Test Radiology reviewed: Image reviewed, Reports reviewed - EKG Interpretation by Me Rate: Bradycardia - 30 Rhythm: Other - appears to have pwaves that are conducted and p waves that are not. seems most c/w 2nd degree block. P Waves: Other - some p waves conducted, some not When compared to previous EKG there are: Changes noted Critical Care Note - Critical Care Note Total time excluding time spent on procedures (mins): 45 Comments: Approximate 45 minutes of critical care time were spent on this patient requiring external pacing. This was spent doing multiple reassessments. It was spent talking with multiple consultants. Spent discussions with family and patient. It was spent reviewing imaging and laboratory values as well as old records. Discharge - Discharge Clinical Impression: Second degree heart block by electrocardiogram (ECG), Externally paced cardiac rhytm Condition: Critical Disposition: [facility] Referrals: DIAAN NERI MD [Primary Care Provider] - Follow up as needed
[2020-06-18 11:00] LABS: ALBUMIN 3.7 g/dL (3.5-5.0); ALKALINE PHOSPHATASE 59 U/L (38-126); ASPARTATE AMINO TRANSFERASE 32 U/L (17-59); BILIRUBIN,TOTAL 0.6 mg/dL (0.2-1.3); BLOOD UREA NITROGEN 19 mg/dL (7-20); CALCIUM 9.2 mg/dL (8.4-10.2); CHLORIDE 101 mmol/L (98-107); GLUCOSE 113 mg/dL (75-110); TOTAL PROTEIN 6.7 g/dL (6.3-8.2)
--- NOTE | 2020-06-18 11:02 | RADIOLOGY REPORT (SQ) ---
EXAM DESCRIPTION: CHEST SINGLE VIEW IMAGES COMPLETED DATE/TIME: 06/18/2020 10:52 am REASON FOR STUDY: pacer COMPARISON: 10/19/2018 EXAM PARAMETERS: NUMBER OF VIEWS: One view. TECHNIQUE: Single frontal radiographic view of the chest acquired. RADIATION DOSE: NA LIMITATIONS: None. FINDINGS: LUNGS AND PLEURA: No opacities, masses or pneumothorax. No pleural effusion. MEDIASTINUM AND HILAR STRUCTURES: No masses. Contour normal. HEART AND VASCULAR STRUCTURES: Heart normal in size. Normal vasculature. BONES: No acute findings. HARDWARE: None in the chest. OTHER: No other significant finding. IMPRESSION: NO ACUTE RADIOGRAPHIC FINDING IN THE CHEST. TECHNICAL DOCUMENTATION: JOB ID: [id number] [employer]- All Rights Reserved Reading location - IP/workstation name: [email or web address]
[2020-06-18 11:05] LABS: ANION GAP 5 (5-19); CARBON DIOXIDE 34 mmol/L (22-30)
[2020-06-18] MEDS ORDERED: POTASSI CL 20 MEQ/50 ML RIDER 20 MEQ/50 ML RTUPB IV ONE (11:06)
[2020-06-18 11:25] VITALS: BP 142/84
--- NOTE | 2020-06-18 14:30 | EKG REPORT ---
SEVERITY:- ABNORMAL ECG - SINUS RHYTHM SUPRAVENTRICULAR BIGEMINY MOBITZ II AV BLOCK FIRST DEGREE AV BLOCK PROBABLE INFERIOR INFARCT, AGE INDETERMINATE CONSIDER POSTERIOR WALL INVOLVEMENT BORDERLINE PROLONGED QT INTERVAL : Confirmed by: Itzel Rodriguez MD 18-Jun-2020 14:29:35
--- NOTE | 2020-06-18 14:30 | EKG REPORT ---
SEVERITY:- ABNORMAL ECG - SINUS BRADYCARDIA FIRST DEGREE AV BLOCK : Confirmed by: Itzel Rodriguez MD 18-Jun-2020 14:29:31
== END 2020-06-18 11:47 | disposition short-term general hospital (02) ==
LOC: ER 10:17
DX: I44.1 Atrioventricular block, second degree (principal); I10 Essential (primary) hypertension; E87.6 Hypokalemia; R53.1 Weakness; M79.605 Pain in left leg; R00.1 Bradycardia, unspecified; F03.90 Unspecified dementia, unspecified severity, without behavioral disturbance, psychotic disturbance, mood disturbance, and anxiety; Z87.891 Personal history of nicotine dependence
CPT/HCPCS: 93005; 99291; 96365; 36415; 83735; 85027; 80053; 84484; 71045; 93010; J3480